=== PATIENT | male | born 1975 | race Caucasian/White ===

== ENCOUNTER 2023-11-11 08:53 | Outpatient (RCR) | payer BC | END 2023-12-01 | disposition home or self-care (01) | LOC: WSPT | DX: R42 Dizziness and giddiness (principal) ==

== ENCOUNTER → 2024-05-10 | Outpatient (CLI) | payer BC | LOC: COL.RAD 14:28 | DX: R90.82 White matter disease, unspecified (principal); J01.80 Other acute sinusitis ==